=== PATIENT | female | born 1945 | race Hispanic/Latino ===

== ENCOUNTER 2018-10-10 11:51 | Day surgery (SDC) | payer MEDICARE ==
[~2018-10-10 11:51] MED LIST: IOPIDINE ONE; MYDRIACYL ONE; NEOFRIN ONE
[2018-10-10] MEDS ORDERED: IOPIDINE OS ONE (12:12)
[2018-10-10] MEDS ORDERED: MYDRIACYL OS ONE (12:12)
[2018-10-10] MEDS ORDERED: NEOFRIN OS ONE (12:13)
[2018-10-10 13:16] VITALS: BP 95/77
== END 2018-10-10 13:23 | disposition home or self-care (01) ==
LOC: OR 11:51
PROVIDERS: ATTEND Specialist
DX: H26.492 Other secondary cataract, left eye (principal); E78.00 Pure hypercholesterolemia, unspecified; I48.91 Unspecified atrial fibrillation; I10 Essential (primary) hypertension; Z72.89 Other problems related to lifestyle; Z98.890 Other specified postprocedural states; Z79.899 Other long term (current) drug therapy; Z87.891 Personal history of nicotine dependence; Z98.41 Cataract extraction status, right eye; Z98.42 Cataract extraction status, left eye; Z86.2 Personal history of diseases of the blood and blood-forming organs and certain disorders involving the immune mechanism

== ENCOUNTER 2018-10-17 11:27 | Day surgery (SDC) | payer MEDICARE ==
[2018-10-17] MEDS ORDERED: IOPIDINE OD ONE ×2 (12:06→13:20)
[2018-10-17] MEDS ORDERED: NEOFRIN OD ONE (12:06)
[2018-10-17] MEDS ORDERED: MYDRIACYL OD ONE (12:06)
[2018-10-17 14:12] VITALS: BP 123/65
== END 2018-10-17 13:23 | disposition home or self-care (01) ==
LOC: OR 11:27
PROVIDERS: ATTEND Specialist
DX: H26.491 Other secondary cataract, right eye (principal); E78.00 Pure hypercholesterolemia, unspecified; I48.91 Unspecified atrial fibrillation; I10 Essential (primary) hypertension; Z79.899 Other long term (current) drug therapy; Z87.891 Personal history of nicotine dependence; Z98.41 Cataract extraction status, right eye; Z98.42 Cataract extraction status, left eye; Z72.89 Other problems related to lifestyle; Z98.890 Other specified postprocedural states; Z86.2 Personal history of diseases of the blood and blood-forming organs and certain disorders involving the immune mechanism